=== PATIENT | male | born 1940 ===

== ENCOUNTER 2018-06-25 01:50 | Inpatient (IN) | payer OTHER ==
[~2018-06-25] VITALS: Ht 180.3 cm; Wt 108.4 kg
[~2018-06-25 01:50] MED LIST: AMLODIPINE BESYL5 M1 PO; LISINOPRIL20 M1 PO; SIMVASTATIN20 M2 PO; TRAZODONE HCL50 M1 PO
[2018-06-25 08:49] LABS: ABSOLUTE BASOPHIL COUNT 0 /CUMM (0.0-0.2); ABSOLUTE EOSINOPHIL COUNT 0.1 /CUMM (0.0-0.7); ABSOLUTE GRANULOCYTE CT 4.9 /CUMM (1.4-6.5); ABSOLUTE LYMPH COUNT 1.7 /CUMM (1.2-3.4); ABSOLUTE MONOCYTE COUNT 0.6 /CUMM (0.10-0.60); BASOPHIL % 0.6 % (0.0-2.0); EOSINOPHIL % 0.9 % (0-5); GRANULOCYTE % 66.8 % (42.2-75.2); HEMATOCRIT 33.3 % (42-52); MEAN CORPUSCULAR HGB 31.8 PG (27.0-31.0); MEAN CORPUSCULAR HGB CONC 34.2 G/DL (33.0-37.0); MEAN PLATELET VOLUME 8.5 FL (7.4-10.4); PLATELET COUNT 223 /CUMM (130-400); RBC DISTRIBUTION WIDTH 13.8 % (11.5-14.5); RED BLOOD CELL CT 3.58 /CUMM (4.70-6.10); WHITE BLOOD CELL COUNT 7.3 /CUMM (4.8-10.8)
--- NOTE | 2018-06-25 09:40 | Admission Core Measures ---
Acute Coronary Syndrome (CM) ACS Core Measures Acute Coronary Syndrome Diagnosis No Congestive Heart Failure (NEW) CHF Core Measures Congestive Heart Failure Diagnosis No Cerebrovascular Accident CVA Core Measures CVA/TIA Diagnosis No Venous Thromboembolism VTE Core Bertha (View Protocol) VTE Risk Factors Surgery No Mechanical VTE Prophylaxis d/t N/A MechProphylax Ordered No VTE Pharm Prophylaxis d/t NA PharmProphylax ordered Problem List As ranked by this Provider includes Assessment & Plan 1. Status post total hip replacement, right HOME MEDS Home Med List Amlodipine Besylate 5 MG TABLET 1 TAB PO DAILY HTN (Reported) Lisinopril 20 MG TABLET 1 TAB PO DAILY HTN (Reported) Simvastatin (Simvastatin*) 20 MG TABLET 1 TAB PO QPM CHOLESTEROL (Reported) Trazodone HCl 50 MG TABLET 2 TAB PO QPM SLEEP (Reported)
--- NOTE | 2018-06-25 09:42 | Surg Short-stay <48hrs Dis Sum ---
Visit Information Visit Dates Admission Date: 06/25/18 Discharge Date: 06/29/18 Surgical Short Stay DC Summary Admission Diagnosis: OA/DJD Final Diagnosis: same s/p R THR IRIS Procedure(s): R THR - see operative report Summary/Significant Findings: Patient underwent a R THR by Dr Clark and was brought to the PACU in stable condition. Post-op course was complicated by IRIS, creatinine went up to 2.[address] Villanueva, from nephrology was consulted, nephrotoxic medications were discontinued including, lisinopril and toradol and IVF were re-started. On the day of discharge, he was voiding, tolerating a regular diet, pain was controlled with oral analgesics and he was cleared for discharge home with services. He was instructed not to restart his lisinopril until follow-up with his pathology assistant and to increase his amlodipine to 10mg daily for BP control. Condition at Discharge: good Discharge Disposition: home health services Discharge instructions provided to patient/family: Yes Post discharge follow-up plan: Keep scheduled appointment with Dr Clark, call sooner if needed FU with nephrologust within 1 week for BP check and repeat labs if needed Copies to: Amber DURÁN,Jean Paul Clark MD,Jean Paul
--- NOTE | 2018-06-25 09:43 | Patient Discharge Instructions ---
Discharge Instructions General Discharge Information You were seen/treated for: Hip pain You had these procedures: Total hip replacement Watch for these problems: See pre printed sheet No bath, but you may shower: Yes Other wound care: Keep incision clean and dry. May shower, no bathing or soaking Diet Continue normal diet: Yes Activity Activity Self Limited: Yes Activity Limited to: Weight bear as tolerated Acute Coronary Syndrome Inclusion Criteria At DC or during hospital stay patient has or had the following: ACS DIAGNOSIS No Discharge Core Measures Meds if any: Prescribed or Continued at Discharge Meds if any: NOT Prescribed or Continued at Discharge Congestive Heart Failure Inclusion Criteria At DC or during hospital stay patient has or had the following: CHF DIAGNOSIS No Discharge Core Measures Meds if any: Prescribed or Continued at Discharge Meds if any: NOT Prescribed or Continued at Discharge Cerebrovascular accident Inclusion Criteria At DC or during hospital stay patient has or had the following: CVA/TIA Diagnosis No Discharge Core Measures Meds if any: Prescribed or Continued at Discharge Meds if any: NOT Prescribed or Continued at Discharge Venous thromboembolism Inclusion Criteria VTE Diagnosis No VTE Type NONE VTE Confirmed by (Test) NONE Discharge Core Measures - Per Current guidelines, there needs to be overlap - treatment for the first 5 days of Warfarin therapy. - If discharged on Warfarin prior to 5 days of - overlap therapy, the patient will need to be - assessed for post discharge needs including - *Post discharge parental anticoagulation - *Warfarin and/or parental anticoagulation education - *Follow up date to check INR post discharge At least 5 days overlap therapy as Inpatient No Meds if any: Prescribed or Continued at Discharge Note: Overlap Therapy is Warfarin and Anticoagulant Meds if any: NOT Prescribed or Continued at Discharge
[2018-06-25] MEDS ORDERED: MIRALAX17 G1 PO (09:45)
[2018-06-25] MEDS ORDERED: DILAUDID2 M1 PO (09:45)
[2018-06-25] MEDS ORDERED: COLACE100 M1 PO (09:45)
[2018-06-25] MEDS ORDERED: ASPIRIN EC81 M1 PO (09:45)
[2018-06-25] MEDS ORDERED: OMEPRAZOLE20 M3 PO (10:52)
[2018-06-25 12:18] VITALS: BP 138/84
--- NOTE | 2018-06-25 12:30 | RADIOLOGY REPORT ---
EXAMINATION: XR HIP, RIGHT CLINICAL INFORMATION: Status post right total hip replacement COMPARISON: None TECHNIQUE: Two views of the right hip. FINDINGS: The femoral head prosthesis is well-positioned within the acetabular cup. There is normal anteversion and lateral version of the acetabular cup. The tip of the femoral stem is well-positioned in the medullary cavity of the proximal femoral diaphysis, but is excluded from [id number] on the crosstable lateral radiograph. No evidence of periprosthetic fracture. There is postoperative soft tissue gas of the hip. IMPRESSION: The components of the right total hip arthroplasty exhibit satisfactory position and alignment. No acute periprosthetic fracture.
[2018-06-25 14:30] VITALS: BP 153/81
--- NOTE | 2018-06-25 14:39 | PN- Orthopedic ---
Subjective Subjective: POST-OP NOTE Reports pain currently "8/10", after receiving dilaudid 4mg about 1.5 hours ago. Out of bed with some "light headedness" and nausea. Currently only reporting pain. No shortness of breath. No chest pains. Voided without difficulty. Objective Vital Signs and I&Os Vital Signs Date Time Temp Pulse Resp B/P B/P Pulse O2 O2 Flow FiO2 Mean Ox Delivery Rate 06/25 1430 97.4 61 16 153/81 99 Room Air 06/25 1218 98.0 59 18 138/84 93 Room Air Intake & Output 06/25 1600 06/25 0800 06/25 0000 06/24 1600 06/24 0800 06/24 0000 Intake Total 500 Output Total 500 Balance 0 Intake, IV 200 Intake, Oral 300 Number 0 Bowel Movements Output, Urine 500 Patient 239 lb Weight Weight Bed scale Measurement Method Physical Exam: General - alert & oriented x 3. comfortable appearing. no acute distress. Lungs - clear bilaterally. no w/r/r. Cardiac - s1s2. reg. Abdomen - soft. nontender. Extremities - warm bilaterally. right hip dressing c/d/i. no hematoma. no drains. nvi. calves soft and nontender b/l. Current Medications: Current Medications Sig/Charley Start time Last Medication Dose Route Stop Time Status Admin Acetaminophen 1,000 MG Q6 06/25 1200 AC 06/25 IV 06/26 0601 1255 Acetaminophen 0 .STK-MED ONE 06/25 0833 DC PO Acetaminophen 975 MG ONCE 06/25 0000 DC PO 06/25 2359 Amlodipine Besylate 5 MG DAILY 06/26 0900 DC PO Amlodipine Besylate 5 MG DAILY 06/26 0900 AC PO Aspirin Buffered 81 MG BID 06/25 2100 AC PO Atorvastatin Calcium 10 MG 1700 06/25 1700 DC PO Atorvastatin Calcium 10 MG 1700 06/25 1700 AC PO Cefazolin Sodium 2 GM Q8H 06/25 1700 AC N/A 1 UNIT IV 06/26 0129 Cefazolin Sodium 2,000 MG ONCE 06/25 0000 DC IV 06/25 2359 Dextrose/Sodium 1,000 ML .Q10H 06/25 1230 AC 06/25 Chloride IV 1256 Docusate Sodium 100 MG BID 06/25 2100 AC PO Hydromorphone HCl 2 MG Q4P PRN 06/25 1230 AC PO Hydromorphone HCl 4 MG Q4P PRN 06/25 1230 AC 06/25 PO 1258 Hydromorphone HCl 0 .STK-MED ONE 06/25 1108 DC .ROUTE Lisinopril 20 MG DAILY 06/26 0900 DC PO Lisinopril 20 MG DAILY 06/26 0900 AC PO Midazolam HCl 0 .STK-MED ONE 06/25 0741 DC .ROUTE Morphine Sulfate 2 MG Q2P PRN 06/25 1230 AC 06/25 IV 1449 Ondansetron HCl 4 MG Q6P PRN 06/25 1230 AC IV Oxycodone HCl 0 .STK-MED ONE 06/25 0833 DC PO Oxycodone HCl 10 MG ONCE 06/25 0000 DC PO 06/25 2359 Polyethylene Glycol 17 GM DAILY 06/25 0936 AC PO Tranexamic Acid 0 .STK-MED ONE 06/25 0742 DC IV Trazodone HCl 100 MG QPM 06/25 2100 CAN PO Trazodone HCl 50 MG AT BEDTIME NEED.. 06/25 1230 AC PO Results Last 48 Hours of Labs: Laboratory Tests 06/25 830 Hematology CBC w Diff NO MAN DIFF REQ WBC (4.8 - 10.8 /CUMM) 7.3 RBC (4.70 - 6.10 /CUMM) 3.58 L Hgb (14.0 - 18.0 G/DL) 11.4 L Hct (42 - 52 %) 33.3 L MCV (80.0 - 94.0 FL) 93.0 MCH (27.0 - 31.0 PG) 31.8 H MCHC (33.0 - 37.0 G/DL) 34.2 RDW (11.5 - 14.5 %) 13.8 Plt Count (130 - 400 /CUMM) 223 MPV (7.4 - 10.4 FL) 8.5 Gran % (42.2 - 75.2 %) 66.8 Lymphocytes % (20.5 - 51.1 %) 23.2 Monocytes % (1.7 - 9.3 %) 8.5 Eosinophils % (0 - 5 %) 0.9 Basophils % (0.0 - 2.0 %) 0.6 Absolute Granulocytes (1.4 - 6.5 /CUMM) 4.9 Absolute Lymphocytes (1.2 - 3.4 /CUMM) 1.7 Absolute Monocytes (0.10 - 0.60 /CUMM) 0.6 Absolute Eosinophils (0.0 - 0.7 /CUMM) 0.1 Absolute Basophils (0.0 - 0.2 /CUMM) 0 Assessment/Plan Assessment/Plan This 77 year male with hx htn, hld, insomnia, is POD#0 s/p right total hip replacement for unilateral primary osteoarthritis tolerating diet, although nauseous earlier pain currently not well controlled. nurse to administer iv morphine continue PT tomorrow huey-operative ancef x 2 doses asa 81mg bid - dvt ppx home meds ordered, including bp meds f/u AM labs possible d/c home tomorrow will d/w Core Measures Venous Thromboembolism VTE Risk Factors Surgery No Mechanical VTE Prophylaxis d/t N/A MechProphylax Ordered No VTE Pharm Prophylaxis d/t NA PharmProphylax ordered
--- NOTE | 2018-06-25 15:51 | Operative Report ---
Operative/Inv Procedure Report Surgery Date: 06/25/18 Name of Procedure: Right total hip replacement Pre-Operative Diagnosis: Primary right hip DJD Post-Operative Diagnosis: Same Estimated Blood Loss: 250 Surgeon/Concrete Hopper Operator: Amber DURÁN,Jean Paul Austin Anesthesia: block Operative/Procedure Note Note: Description of Procedure: The patient was taken to the operating room and positively identified. After induction of spinal anesthesia and administration of appropriate pre-operative antibiotics, the patient was positioned supine on the operating room table and all bony prominences were well padded. After performing a surgical timeout, the right lower extremity was prepped and draped in the usual sterile fashion. A direct anterior approach was made to the right hip. The incision was carried sharply through superficial soft tissues to the level of the fascia. Meticulous hemostasis was maintained with Bovie electocautery. The fascia over the tensor fascia kishan muscle was opened sharply and the interval between the TFL and the sartorius was entered bluntly taking care to stay lateral to the lateral femoral cutaneous nerve. Retractors were placed around the femoral neck and the pericapsular fat was identified. The ascending branches of the lateral femoral circumflex vessels were identified and carefully coagulated. The pericapsular fat and anterior capsule were then resected. A napkin ring osteotomy was performed and the femoral head was removed without difficulty. Attention was then turned to the acetabulum. After appropriate placement of retractors, the acetabulum was exposed. Soft tissue was cleaned from the acetabular margin and notch. Overhanging osteophytes were removed and the teardrop was exposed. The acetabulum was then sequentially reamed to accept a 66 mm Robby Tritanium hemispherical solid shell. This was impacted into place in the appropriate position and fitted with a 36 mm Trident X3 zero degree polyethylene insert. Attention was then turned to the femur. After performing the appropriate ligament releases, the proximal femur was exposed. It was then sequentially broached to accept a size 9 Robby secure fit advanced 127 neck angle stem. This was trialed for leg length and stability. The trial component was removed and the final component was impacted into place. The trunnion was carefully cleaned and fit with a 36 mm, +5 Biolox delta ceramic femoral head. The hip was reduced and put through a full range of motion and found to be stable. The articular space was then irrigated with sterile saline. The periarticular soft tissues were infilitrated with Marcaine. The fascial layer was closed with interrupted #1 vicryl suture and the skin was re-approximated with interrupted 2 -0 vicryl. The skin was closed with a running 3-0 V-Lock suture. Steri-strips and a sterile dressing were applied. The patient was awakened and taken to the recovery room in satisfactory condition.
[2018-06-25 16:43] VITALS: BP 132/77
[2018-06-25 18:00] VITALS: BP 141/77
[2018-06-25 20:00] VITALS: BP 142/76
[2018-06-26 01:38] VITALS: BP 120/60
[2018-06-26 04:23] VITALS: BP 110/70
[2018-06-26 06:24] VITALS: BP 140/70
[2018-06-26 08:34] VITALS: BP 152/75
--- NOTE | 2018-06-26 09:17 | PN- Orthopedic ---
Subjective Subjective: POD#1 S/P RIGHT ZORA SITTING UP IN CHAIR EATING BREAKFAST NO MAJOR ISSUES OVERNIGHT DENEIS CP, SOB, NO N+V WITH DIET Objective Vital Signs and I&Os Vital Signs Date Time Temp Pulse Resp B/P B/P Pulse O2 O2 Flow FiO2 Mean Ox Delivery Rate 06/26 0834 98.4 86 18 152/75 96 Room Air 06/26 0825 91 140/70 / 0824 91 140/70 06/26 0624 99.6 91 18 140/70 95 / 0423 98.4 74 18 110/70 95 06/26 0138 99.6 79 18 120/60 94 06/25 2000 99.3 77 18 142/76 95 Room Air 06/25 1800 98.1 69 19 141/77 96 Room Air 06/25 1643 98.2 64 19 132/77 99 Room Air 06/25 1430 97.4 61 16 153/81 99 Room Air 06/25 1218 98.0 59 18 138/84 93 Room Air Intake & Output 06/26 1600 06/26 0800 06/26 0000 06/25 1600 06/25 0800 06/25 0000 Intake Total 1530 1060 500 Output Total 700 500 Balance 1530 360 0 Intake, IV 1050 300 200 Intake, Oral 480 760 300 Number 0 0 0 Bowel Movements Output, Urine 700 500 Patient 239 lb Weight Weight Bed scale Measurement Method Physical Exam: CV: RRR LUNGS: CLEAR ABD: SOFT, +BS EXT: DRSG DRY DISTAL CMS INTACT NO CALF TENDERNESS Assessment/Plan Assessment/Plan ORTHO STABLE PLAN HOME D/C LATER TODAY AFTER PT CLEARANCE Core Measures Venous Thromboembolism VTE Risk Factors Surgery No Mechanical VTE Prophylaxis d/t N/A MechProphylax Ordered No VTE Pharm Prophylaxis d/t NA PharmProphylax ordered
[2018-06-26 10:51] LABS: ABSOLUTE BASOPHIL COUNT 0 /CUMM (0.0-0.2); ABSOLUTE EOSINOPHIL COUNT 0 /CUMM (0.0-0.7); ABSOLUTE GRANULOCYTE CT 9.6 /CUMM (1.4-6.5); ABSOLUTE LYMPH COUNT 1.8 /CUMM (1.2-3.4); ABSOLUTE MONOCYTE COUNT 1.2 /CUMM (0.10-0.60); BASOPHIL % 0.3 % (0.0-2.0); EOSINOPHIL % 0.3 % (0-5); GRANULOCYTE % 76.2 % (42.2-75.2); MEAN CORPUSCULAR HGB 31.7 PG (27.0-31.0); MEAN CORPUSCULAR HGB CONC 34.1 G/DL (33.0-37.0); MEAN PLATELET VOLUME 9.2 FL (7.4-10.4); PLATELET COUNT 243 /CUMM (130-400); RBC DISTRIBUTION WIDTH 14.6 % (11.5-14.5); RED BLOOD CELL CT 3.77 /CUMM (4.70-6.10)
[2018-06-26 11:04] LABS: WHITE BLOOD CELL COUNT 12.7 /CUMM (4.8-10.8)
[2018-06-26 12:35] VITALS: BP 116/65
[2018-06-26 21:14] VITALS: BP 118/64
[2018-06-27 07:12] VITALS: BP 122/70; BP 130/60
--- NOTE | 2018-06-27 08:51 | PN- Orthopedic ---
See Addendum Subjective Subjective: Patient sitting in bed still complains of severe right hip pain. Declined physical therapy this morning due to pain. Tolerating regular diet, no bowel movement yet. Voiding. Denies chest pain, shortness of breath, headache, fevers Objective Vital Signs and I&Os Vital Signs Date Time Temp Pulse Resp B/P B/P Pulse O2 O2 Flow FiO2 Mean Ox Delivery Rate 06/27 08 99 130/84 06/27 08 99 130/84 06/27 0712 98.9 94 17 130/60 87 06/26 2114 99.3 93 17 118/64 96 Room Air 06/26 1235 97.7 85 18 116/65 96 Room Air Intake & Output 06/27 1600 06/27 0800 06/27 0000 06/26 1600 06/26 0800 06/26 0000 Intake Total 410 829 9731 1060 Output Total 250 350 700 Balance 078 640 0588 360 Intake, IV 200 1050 300 Intake, Oral 480 550 480 760 Number 0 0 Bowel Movements Output, Urine 250 350 700 Physical Exam: General- NAD Resperations- clear bialaterlly Cardiac-regular rate and rhythm Abdomen-soft nontender with positive bowel sounds Extremities-dressing is clean and dry, thigh is soft with no erythema, minimal tenderness around incision. DRESSING CHANGED. Calves are soft bilaterally and non-tenderness. Distal sensory and motor function is intact. 2+ dorsalis pedis pulse bilaterally Current Medications: Current Medications Sig/Charley Start time Last Medication Dose Route Stop Time Status Admin Acetaminophen 975 MG Q8H 06/27 0845 AC PO Amlodipine Besylate 5 MG DAILY 06/26 09 DC PO Amlodipine Besylate 5 MG DAILY 06/26 0900 AC 06/27 PO 0812 Aspirin Buffered 81 MG BID 06/25 2100 AC 06/27 PO 0811 Atorvastatin Calcium 10 MG 1700 06/25 1700 AC 06/26 PO 1620 Dextrose/Sodium 1,000 ML Q8H 06/27 0900 AC Chloride IV Dextrose/Sodium 1,000 ML .Q10H 06/25 1230 DC 06/26 Chloride IV 0829 Docusate Sodium 100 MG BID 06/25 2100 AC 06/27 PO 0811 Hydromorphone HCl 2 MG Q4P PRN 06/25 1230 AC PO Hydromorphone HCl 4 MG Q4P PRN 06/25 1230 AC 06/27 PO 0811 Ketorolac 15 MG Q8P PRN 06/27 0845 CAN Tromethamine IV 07/02 0844 Ketorolac 30 MG ONCE ONE 06/27 0845 DC Tromethamine IV 06/27 0846 Lisinopril 20 MG DAILY 06/26 0900 DC PO Lisinopril 20 MG DAILY 06/26 0900 AC 06/27 PO 0812 Morphine Sulfate 2 MG Q2P PRN 06/25 1230 AC 06/26 IV 1824 Ondansetron HCl 4 MG Q6P PRN 06/25 1230 AC 06/26 IV 0933 Patient Medication 1 ED ONE ONE 06/26 181 DC 06/26 Teaching ED 06/26 181 1826 Polyethylene Glycol 17 GM DAILY 06/25 0936 AC 06/27 PO 0810 Senna/Docusate Sodium 2 TAB DAILY 06/27 0900 AC PO Trazodone HCl 50 MG AT BEDTIME NEED.. 06/25 1230 AC 06/25 PO 2222 Results Last 48 Hours of Labs: Laboratory Tests 06/26 916 Chemistry Sodium (137 - 145 mmol/L) 138 Potassium (3.5 - 5.1 mmol/L) 3.8 Chloride (98 - 107 mmol/L) 101 Carbon Dioxide (22 - 30 mmol/L) 26 Anion Gap (5 - 16) 10 BUN (9 - 20 mg/dL) 17 Creatinine (0.7 - 1.2 mg/dL) 1.3 H Estimated GFR (>60 ml/min) 53 L BUN/Creatinine Ratio (7 - 25 %) 13.1 Hematology CBC w Diff NO MAN DIFF REQ WBC (4.8 - 10.8 /CUMM) 12.7 H RBC (4.70 - 6.10 /CUMM) 3.77 L Hgb (14.0 - 18.0 G/DL) 11.9 L Hct (42 - 52 %) 35.0 L MCV (80.0 - 94.0 FL) 93.0 MCH (27.0 - 31.0 PG) 31.7 H MCHC (33.0 - 37.0 G/DL) 34.1 RDW (11.5 - 14.5 %) 14.6 H Plt Count (130 - 400 /CUMM) 243 MPV (7.4 - 10.4 FL) 9.2 Gran % (42.2 - 75.2 %) 76.2 H Lymphocytes % (20.5 - 51.1 %) 13.9 L Monocytes % (1.7 - 9.3 %) 9.3 Eosinophils % (0 - 5 %) 0.3 Basophils % (0.0 - 2.0 %) 0.3 Absolute Granulocytes (1.4 - 6.5 /CUMM) 9.6 H Absolute Lymphocytes (1.2 - 3.4 /CUMM) 1.8 Absolute Monocytes (0.10 - 0.60 /CUMM) 1.2 H Absolute Eosinophils (0.0 - 0.7 /CUMM) 0 Absolute Basophils (0.0 - 0.2 /CUMM) 0 Assessment/Plan Assessment/Plan 77-year-old male status post right total hip arthroplasty postop day 2. Stable condition although still with significant pain. Ordering repeat labs for this morning to follow-up on leukocytosis likely reactive from surgery and elevated creatinine from yesterday. pain management we will add one-time dose of Toradol and p.o. extra strength Tylenol PT- WBAT with rolling walker DVT PPX- ASA BID FU AM labs We will restart IV fluids for now until creatinine comes back this morning Regular diet Regular home medications Encourage IS DC planning- plan for home with health services today pending clearance by physical therapy Core Measures Venous Thromboembolism VTE Risk Factors Surgery No Mechanical VTE Prophylaxis d/t N/A MechProphylax Ordered No VTE Pharm Prophylaxis d/t NA PharmProphylax ordered
[2018-06-27 10:12] LABS: ABSOLUTE BASOPHIL COUNT 0.1 /CUMM (0.0-0.2); ABSOLUTE EOSINOPHIL COUNT 0 /CUMM (0.0-0.7); ABSOLUTE GRANULOCYTE CT 14.1 /CUMM (1.4-6.5); ABSOLUTE LYMPH COUNT 1.5 /CUMM (1.2-3.4); ABSOLUTE MONOCYTE COUNT 1.9 /CUMM (0.10-0.60); BASOPHIL % 0.4 % (0.0-2.0); EOSINOPHIL % 0 % (0-5); GRANULOCYTE % 80.6 % (42.2-75.2); HEMATOCRIT 33.3 % (42-52); MEAN CORPUSCULAR HGB 31.8 PG (27.0-31.0); MEAN CORPUSCULAR HGB CONC 34.5 G/DL (33.0-37.0); MEAN CORPUSCULAR VOLUME 92.1 FL (80.0-94.0); MEAN PLATELET VOLUME 9.3 FL (7.4-10.4); PLATELET COUNT 240 /CUMM (130-400); RBC DISTRIBUTION WIDTH 14.3 % (11.5-14.5); RED BLOOD CELL CT 3.62 /CUMM (4.70-6.10); WHITE BLOOD CELL COUNT 17.5 /CUMM (4.8-10.8)
[2018-06-27 14:15] VITALS: BP 111/60
[2018-06-27 23:00] VITALS: BP 149/78
--- NOTE | 2018-06-28 07:19 | PN- Orthopedic ---
Subjective Subjective: No acute events overnight, patient feeling well, no fever no flulike illness, right hip pain is controlled Objective Vital Signs and I&Os Vital Signs Date Time Temp Pulse Resp B/P B/P Pulse O2 O2 Flow FiO2 Mean Ox Delivery Rate 06/27 2300 97.5 74 19 149/78 96 Room Air 06/27 1415 98.7 61 16 111/60 98 Room Air 06/27 0812 99 130/84 06/27 0812 99 130/84 Intake & Output 06/28 0000 06/27 1600 06/27 0806/27 0000 06/26 1600 Intake Total 600 1200 120 480 750 Output Total 400 250 400 250 350 Balance 200 -250 800 120 230 400 Intake, IV 600 500 200 Intake, Oral 700 120 480 550 Number 0 Bowel Movements Output, Urine 400 250 400 250 350 Physical Exam: Well-developed well-nourished no apparent distress. HEENT: Atraumatic, extraocular motion intact Neck: Supple, no lymphadenopathy Respiratory: No respiratory distress Extremities: No edema RIGHT lower extremity hip dressing in place, Dressing clean dry and intact Mild thigh swelling No signs of infection. No shortening or rotation Hip range of motion is limited and without unexpected pain Neurovascularly intact distally Bilateral calves are supple, nontender. Neuro: Alert and oriented x3 Psych: Mood affect normal, normal memory normal judgment. Skin: Warm and dry, no rash on exposed skin Results Last 48 Hours of Labs: Laboratory Tests 06/27 06/27 2245 2245 Urines Urine Color (YEL,AMB,STR) YEL Urine Clarity (CLEAR) CLDY H Urine pH (5.0 - 8.0) 5.5 Ur Specific [place] (1.001 - 1.035) >= 1.030 Urine Protein (NEG,<30 MG/DL) 30 H Urine Ketones (NEG) NEG Urine Nitrite (NEG) NEG Urine Bilirubin (NEG) NEG Urine Urobilinogen (0.1 - 1.0 EU/dl) 0.2 Ur Leukocyte Esterase (NEG) TRACE H Ur Microscopic SEDIMENT EXAMINED Urine RBC (0 - 5 /HPF) >75 H Urine WBC (0 - 2 /HPF) 10-15 H Ur Epithelial Cells (NONE,FEW) FEW Urine Crystals 1+ CA OX H Urine Bacteria (NEG/NONE) MOD H Urine Mucus (FEW,NONE) FEW Urine Hemoglobin (NEG) LARGE H Ur Random Creatinine (mg/dL) 352.4 U Random Total Protein (0 - 12 mg/dL) 40 H Ur Random Sodium (30 - 90 mmol/L) 15 L Ur Random Potassium (mmol/L) 51.8 Protein/Creatinin Ratio (< 0.2) 0.1 Fraction Sodium Excret (<1% %) 0.1 Urine Glucose (N MG/DL) NEG 06/27 06/27 1220 1220 Urines Urine Color (YEL,AMB,STR) YEL Urine Clarity (CLEAR) HAZY H Urine pH (5.0 - 8.0) 5.5 Ur Specific [place] (1.001 - 1.035) 1.025 Urine Protein (NEG,<30 MG/DL) 100 H Urine Ketones (NEG) NEG Urine Nitrite (NEG) NEG Urine Bilirubin (NEG) NEG Urine Urobilinogen (0.1 - 1.0 EU/dl) 0.2 Ur Leukocyte Esterase (NEG) NEG Ur Microscopic SEDIMENT EXAMINED Urine RBC (0 - 5 /HPF) PACKD H Urine WBC (0 - 2 /HPF) RARE Ur Epithelial Cells (NONE,FEW) FEW Granular Casts (NONE /LPF) 1-3 H Urine Hemoglobin (NEG) LARGE H Ur Random Creatinine (mg/dL) 170.5 Ur Random Sodium (30 - 90 mmol/L) 26 L Ur Random Potassium (mmol/L) 44.8 Fraction Sodium Excret (<1% %) 0.3 Urine Glucose (N MG/DL) NEG 06/27 06/26 0945 0916 Chemistry Sodium (137 - 145 mmol/L) 136 L 138 Potassium (3.5 - 5.1 mmol/L) 4.3 3.8 Chloride (98 - 107 mmol/L) 103 101 Carbon Dioxide (22 - 30 mmol/L) 20 L 26 Anion Gap (5 - 16) 13 10 BUN (9 - 20 mg/dL) 25 H 17 Creatinine (0.7 - 1.2 mg/dL) 2.7 H 1.3 H Estimated GFR (>60 ml/min) 23 L 53 L BUN/Creatinine Ratio (7 - 25 %) 9.3 13.1 Hematology CBC w Diff NO MAN DIFF REQ NO MAN DIFF REQ WBC (4.8 - 10.8 /CUMM) 17.5 H 12.7 H RBC (4.70 - 6.10 /CUMM) 3.62 L 3.77 L Hgb (14.0 - 18.0 G/DL) 11.5 L 11.9 L Hct (42 - 52 %) 33.3 L 35.0 L MCV (80.0 - 94.0 FL) 92.1 93.0 MCH (27.0 - 31.0 PG) 31.8 H 31.7 H MCHC (33.0 - 37.0 G/DL) 34.5 34.1 RDW (11.5 - 14.5 %) 14.3 14.6 H Plt Count (130 - 400 /CUMM) 240 243 MPV (7.4 - 10.4 FL) 9.3 9.2 Gran % (42.2 - 75.2 %) 80.6 H 76.2 H Lymphocytes % (20.5 - 51.1 %) 8.3 L 13.9 L Monocytes % (1.7 - 9.3 %) 10.7 H 9.3 Eosinophils % (0 - 5 %) 0 0.3 Basophils % (0.0 - 2.0 %) 0.4 0.3 Absolute Granulocytes (1.4 - 6.5 /CUMM) 14.1 H 9.6 H Absolute Lymphocytes (1.2 - 3.4 /CUMM) 1.5 1.8 Absolute Monocytes (0.10 - 0.60 /CUMM) 1.9 H 1.2 H Absolute Eosinophils (0.0 - 0.7 /CUMM) 0 0 Absolute Basophils (0.0 - 0.2 /CUMM) 0.1 0 Assessment/Plan Assessment/Plan Postop day #3 status post right total hip arthroplasty anterior approach Creatinine elevated yesterday, questionable ATN, nephrology consult pending, IV fluids running, follow a.m. labs Continue to hold nephrotoxic medication Leukocytosis, likely reactive postoperatively, no signs of infection, recheck this a.m. Out of bed, physical therapy, weightbearing as tolerated Continue dry sterile dressing Aspirin for DVT prophylaxis Pain medication as needed Possible discharge home today w VNA services as patient is orthopedically stable however we will await nephrology consult prior to making any decisions in case he needs further nephrology workup and/or treatment Core Measures Venous Thromboembolism VTE Risk Factors Surgery No Mechanical VTE Prophylaxis d/t N/A MechProphylax Ordered No VTE Pharm Prophylaxis d/t NA PharmProphylax ordered
[2018-06-28 07:23] VITALS: BP 150/70
[2018-06-28 08:24] LABS: ABSOLUTE BASOPHIL COUNT 0 /CUMM (0.0-0.2); ABSOLUTE EOSINOPHIL COUNT 0.1 /CUMM (0.0-0.7); ABSOLUTE LYMPH COUNT 1.6 /CUMM (1.2-3.4); ABSOLUTE MONOCYTE COUNT 1.2 /CUMM (0.10-0.60); BASOPHIL % 0.2 % (0.0-2.0); EOSINOPHIL % 0.9 % (0-5); GRANULOCYTE % 77.6 % (42.2-75.2); HEMATOCRIT 29.7 % (42-52); MEAN CORPUSCULAR HGB 31.6 PG (27.0-31.0); MEAN CORPUSCULAR HGB CONC 33.9 G/DL (33.0-37.0); MEAN CORPUSCULAR VOLUME 93.2 FL (80.0-94.0); MEAN PLATELET VOLUME 8.5 FL (7.4-10.4); PLATELET COUNT 209 /CUMM (130-400); RED BLOOD CELL CT 3.19 /CUMM (4.70-6.10); WHITE BLOOD CELL COUNT 12.9 /CUMM (4.8-10.8)
--- NOTE | 2018-06-28 09:50 | Cons- Nephrology ---
General Information and HPI Consulting Request Date of Consult: 06/28/18 Requested By: Jean Paul Clark MD Reason for Consult: Acute kidney injury possible chronic kidney disease Source of Information: patient, old records Exam Limitations: no limitations History of Present Illness: This 77-year-old gentleman has a previous history of having been evaluated for kidney issues. Serum creatinine upon presentation was 1.3. Reviewing outside records, he likewise had a creatinine 1.3. He denies any dysuria, frequency, polyuria or nocturia. Because of concerns of which the patient is not completely sure, he was sent to see Dr. Teresa Dale of [facility]. Initially the patient said it was a urologist. But on closer questioning, it was clear that the physician was Dr. Posada. Patient himself denies any history of hematuria or proteinuria. He denies any history of kidney stones or kidney infections. No one in the family has history of renal disease. No one in the family has a history of needing dialysis. He is not aware of any proteinuria. Patient underwent a right total hip replacement on June 25, 2018. Reviewing the preop materials, his serum creatinine as an outpatient was likewise 1.3. Creatinine was the same the day after surgery on the . Yesterday however, it was found to be 2.7. It is still 2.7 today. He denies any difficulty with voiding. He denies any slowed stream. Also of note, he does not use nonsteroidal anti-inflammatory drugs at home. It appears he did receive a dose of Toradol. He tells me he did not take his lisinopril before the operation. Looking at the blood pressures in the operative report, as well as the anesthesia record, there is no episodes of hypotension. He has not received any IV contrast. There is been no madonna episodes of hypotension. He did receive what appears to be 1 dose of Toradol. His lisinopril was resumed after the surgery. With regards to his high blood pressure, he has had that for 5 years. It is been easily controlled. He has never been hospitalized with high blood pressure. Allergies/Medications Allergies: Coded Allergies: No Known Allergies (06/12/18) Home Med List: Amlodipine Besylate 5 MG TABLET 1 TAB PO DAILY HTN (Reported) Aspirin (Ecotrin*) 81 MG TABLET.DR 1 TAB PO BID blood thinner Docusate Sodium (Colace) 100 MG CAPSULE 1 CAP PO BID constipation Hydromorphone HCl (Dilaudid) 2 MG TABLET 1-2 TAB PO Q4P PRN pain Lisinopril 20 MG TABLET 1 TAB PO DAILY HTN (Reported) Omeprazole 20 MG TABLET.DR 1 TAB PO DAILY ulcer prophylaxis Polyethylene Glycol 3350 (Miralax) 17 GRAM POWD.PACK 1 PAC PO DAILY constipation dissolve in water Simvastatin (Simvastatin*) 20 MG TABLET 1 TAB PO QPM CHOLESTEROL (Reported) Trazodone HCl 50 MG TABLET 2 TAB PO QPM PRN sleep (Reported) Current Medications: Current Medications Sig/Charley Start time Last Medication Dose Route Stop Time Status Admin Acetaminophen 975 MG Q8H 06/27 0845 AC 06/28 PO 0841 Amlodipine Besylate 5 MG DAILY 06/26 0900 AC 06/28 PO 0841 Aspirin Buffered 81 MG BID 06/25 2100 AC 06/28 PO 0841 Atorvastatin Calcium 10 MG 1700 06/25 1700 DC 06/26 PO 1620 Dextrose/Sodium 1,000 ML Q8H 06/27 0900 DC 06/27 Chloride IV 0858 Docusate Sodium 100 MG BID 06/25 2100 AC 06/28 PO 0841 Hydromorphone HCl 2 MG Q4P PRN 06/25 1230 AC PO Hydromorphone HCl 4 MG Q4P PRN 06/25 1230 AC 06/27 PO 1235 Lisinopril 20 MG DAILY 06/26 0900 DC 06/27 PO 0812 Morphine Sulfate 2 MG Q2P PRN 06/25 1230 AC 06/26 IV 1824 Ondansetron HCl 4 MG Q6P PRN 06/25 1230 06/26 IV 0933 Patient Medication 1 ED ONE ONE 06/27 1115 MT Teaching ED 06/27 1116 Polyethylene Glycol 17 GM DAILY 06/25 0936 AC 06/28 PO 0843 Senna/Docusate Sodium 2 TAB DAILY 06/27 0900 AC 06/28 PO 0841 Sodium Chloride 1,000 ML Q13H 06/27 1045 AC 06/27 IV 2255 Trazodone HCl 50 MG AT BEDTIME NEED.. 06/25 1230 DC 06/25 PO 2222 Review of Systems Review of Systems Constitutional: Denies: chills, diaphoresis, fever, malaise, weakness, unexplained weight loss. EENTM: Denies: blurred vision, double vision, hearing changes, nasal congestion, epistaxis, throat pain, throat swelling, mouth pain. Cardiovascular: Denies: chest pain, edema, orthopena, palpitations, peripheral edema, syncope. Respiratory: Denies: cough, orthopnea, short of breath, wheezing. GI: Denies: abdominal pain, constipation, diarrhea, bowel incontinence, melena, nausea, bloody stool, changes in stool, vomiting. Genitourinary: Denies: dysuria, frequency, hematuria, hesitation, nocturia, pain, urgency. Musculoskeletal: Denies: joint pain, muscle pain, muscle stiffness. Skin: Denies: jaundice, rash. Neurological/Psychological: Denies: confusion, tingling, tremors. Hematologic/Endocrine: Denies: bruising, bleeding. Past History Medical History Blood Transfusion Hx: No Neurological: NONE EENT: NONE Cardiovascular: hypertension Respiratory: obstructive sleep apnea Gastrointestinal: NONE Hepatic: NONE Renal: chronic kidney disease (Recently saw Dr Teresa Dale) Musculoskeletal: osteoarthritis Psychiatric: anxiety Endocrine: NONE [employer]ING [employer]/Reproductive: NONE Surgical History Surgical History: hip replacement, knee replacement (x2) Psychosocial History Where Do You Live? Home Services at Home: None Smoking Status: Never Smoked Exam & Diagnostic Data Vital Signs and I&O Vital Signs Date Time Temp Pulse Resp B/P B/P Pulse O2 O2 Flow FiO2 Mean Ox Delivery Rate 06/28 0841 78 124/68 06/28 0723 99.1 88 19 150/70 92 06/27 2300 97.5 74 19 149/78 96 Room Air 06/27 1415 98.7 61 16 111/60 98 Room Air Intake & Output 06/28 1600 06/28 0400 06/27 1600 06/27 0400 06/26 1600 06/26 0400 Intake Total 600 8736 481 1531 1060 Output Total 400 250 400 250 350 700 Balance 200 -250 897 857 3575 360 Intake, IV 519 209 5857 300 Intake, Oral 581 107 3130 760 Number 0 0 0 Bowel Movements Output, Urine 400 250 400 250 350 700 Physical Exam General Appearance: well developed/nourished, no apparent distress, alert, awake , comfortable, obese Head: atraumatic, normal appearance Eyes: Bilateral: normal appearance, PERRL, EOMI. Ears, Nose, Throat: normal pharynx, normal ENT inspection, hearing grossly normal Neck: normal inspection, supple Respiratory: normal breath sounds, chest non-tender, no respiratory distress, lungs clear Cardiovascular: regular rate/rhythm Gastrointestinal: normal bowel sounds, soft, non-tender, no organomegaly, sitting up in a chair Back: normal inspection, no vertebral tenderness Extremities: normal inspection, normal capillary refill Neurologic/Psych: no motor/sensory deficits, awake, alert, oriented x 3, normal mood/affect Cranial Nerves: normal hearing, normal speech, PERRL Skin: intact, normal color, warm/dry Lymphatic: adenopathy Results Pertinent Lab Results: Laboratory Tests 06/28 06/27 0740 2245 Chemistry Sodium (137 - 145 mmol/L) 133 L Potassium (3.5 - 5.1 mmol/L) 3.9 Chloride (98 - 107 mmol/L) 102 Carbon Dioxide (22 - 30 mmol/L) 22 Anion Gap (5 - 16) 9 BUN (9 - 20 mg/dL) 39 H Creatinine (0.7 - 1.2 mg/dL) 2.7 H Estimated GFR (>60 ml/min) 23 L BUN/Creatinine Ratio (7 - 25 %) 14.4 Hematology CBC w Diff NO MAN DIFF REQ WBC (4.8 - 10.8 /CUMM) 12.9 H RBC (4.70 - 6.10 /CUMM) 3.19 L Hgb (14.0 - 18.0 G/DL) 10.1 L Hct (42 - 52 %) 29.7 L MCV (80.0 - 94.0 FL) 93.2 MCH (27.0 - 31.0 PG) 31.6 H MCHC (33.0 - 37.0 G/DL) 33.9 RDW (11.5 - 14.5 %) 14.0 Plt Count (130 - 400 /CUMM) 209 MPV (7.4 - 10.4 FL) 8.5 Gran % (42.2 - 75.2 %) 77.6 H Lymphocytes % (20.5 - 51.1 %) 12.4 L Monocytes % (1.7 - 9.3 %) 8.9 Eosinophils % (0 - 5 %) 0.9 Basophils % (0.0 - 2.0 %) 0.2 Absolute Granulocytes (1.4 - 6.5 /CUMM) 10.0 H Absolute Lymphocytes (1.2 - 3.4 /CUMM) 1.6 Absolute Monocytes (0.10 - 0.60 /CUMM) 1.2 H Absolute Eosinophils (0.0 - 0.7 /CUMM) 0.1 Absolute Basophils (0.0 - 0.2 /CUMM) 0 Urines Urine Color (YEL,AMB,STR) YEL Urine Clarity (CLEAR) CLDY H Urine pH (5.0 - 8.0) 5.5 Ur Specific Victor (1.001 - 1.035) >= 1.030 Urine Protein (NEG,<30 MG/DL) 30 H Urine Ketones (NEG) NEG Urine Nitrite (NEG) NEG Urine Bilirubin (NEG) NEG Urine Urobilinogen (0.1 - 1.0 EU/dl) 0.2 Ur Leukocyte Esterase (NEG) TRACE H Ur Microscopic SEDIMENT EXAMINED Urine RBC (0 - 5 /HPF) >75 H Urine WBC (0 - 2 /HPF) 10-15 H Ur Epithelial Cells (NONE,FEW) FEW Urine Crystals 1+ CA OX H Urine Bacteria (NEG/NONE) MOD H Urine Mucus (FEW,NONE) FEW Urine Hemoglobin (NEG) LARGE H Urine Glucose (N MG/DL) NEG 06/27 06/27 06/27 2245 1220 1220 Urines Urine Color (YEL,AMB,STR) YEL Urine Clarity (CLEAR) HAZY H Urine pH (5.0 - 8.0) 5.5 Ur Specific Victor (1.001 - 1.035) 1.025 Urine Protein (NEG,<30 MG/DL) 100 H Urine Ketones (NEG) NEG Urine Nitrite (NEG) NEG Urine Bilirubin (NEG) NEG Urine Urobilinogen (0.1 - 1.0 EU/dl) 0.2 Ur Leukocyte Esterase (NEG) NEG Ur Microscopic SEDIMENT EXAMINED Urine RBC (0 - 5 /HPF) PACKD H Urine WBC (0 - 2 /HPF) RARE Ur Epithelial Cells (NONE,FEW) FEW Granular Casts (NONE /LPF) 1-3 H Urine Hemoglobin (NEG) LARGE H Ur Random Creatinine (mg/dL) 352.4 170.5 U Random Total Protein (0 - 12 mg/dL) 40 H Ur Random Sodium (30 - 90 mmol/L) 15 L 26 L Ur Random Potassium (mmol/L) 51.8 44.8 Protein/Creatinin Ratio (< 0.2) 0.1 Fraction Sodium Excret (<1% %) 0.1 0.3 Urine Glucose (N MG/DL) NEG 06/27 06/26 0945 0916 Chemistry Sodium (137 - 145 mmol/L) 136 L 138 Potassium (3.5 - 5.1 mmol/L) 4.3 3.8 Chloride (98 - 107 mmol/L) 103 101 Carbon Dioxide (22 - 30 mmol/L) 20 L 26 Anion Gap (5 - 16) 13 10 BUN (9 - 20 mg/dL) 25 H 17 Creatinine (0.7 - 1.2 mg/dL) 2.7 H 1.3 H Estimated GFR (>60 ml/min) 23 L 53 L BUN/Creatinine Ratio (7 - 25 %) 9.3 13.1 Hematology CBC w Diff NO MAN DIFF REQ NO MAN DIFF REQ WBC (4.8 - 10.8 /CUMM) 17.5 H 12.7 H RBC (4.70 - 6.10 /CUMM) 3.62 L 3.77 L Hgb (14.0 - 18.0 G/DL) 11.5 L 11.9 L Hct (42 - 52 %) 33.3 L 35.0 L MCV (80.0 - 94.0 FL) 92.1 93.0 MCH (27.0 - 31.0 PG) 31.8 H 31.7 H MCHC (33.0 - 37.0 G/DL) 34.5 34.1 RDW (11.5 - 14.5 %) 14.3 14.6 H Plt Count (130 - 400 /CUMM) 240 243 MPV (7.4 - 10.4 FL) 9.3 9.2 Gran % (42.2 - 75.2 %) 80.6 H 76.2 H Lymphocytes % (20.5 - 51.1 %) 8.3 L 13.9 L Monocytes % (1.7 - 9.3 %) 10.7 H 9.3 Eosinophils % (0 - 5 %) 0 0.3 Basophils % (0.0 - 2.0 %) 0.4 0.3 Absolute Granulocytes (1.4 - 6.5 /CUMM) 14.1 H 9.6 H Absolute Lymphocytes (1.2 - 3.4 /CUMM) 1.5 1.8 Absolute Monocytes (0.10 - 0.60 /CUMM) 1.9 H 1.2 H Absolute Eosinophils (0.0 - 0.7 /CUMM) 0 0 Absolute Basophils (0.0 - 0.2 /CUMM) 0.1 0 Assessment/Plan Assessment/Recommendations Assessment: 1. Acute kidney injury. His urinary sodium is consistent with prerenal azotemia. Fractional excretion of sodium is calculated to be 0.08%. Which corroborates that clinical impression. He is not received any IV contrast. He did receive ceftezolin for antibiotic prophylaxis, but that has been discontinued. In addition, unless an anamnestic response is invoked, it is highly unlikely that one dose of Ancef would cause interstitial nephritis. There is likewise no fever nor rash. The only other issue is whether or not he has developed acute urinary retention. To this end, would obtain a renal ultrasound or bladder scan for postvoid residual. With regards to discharge, until his creatinine is clearly decreasing that is not something that ought to be contemplated. In addition, on 2 urinalyses he did have hematuria. I cannot find any documentation that a Hooker catheter had ever been placed with, therefore, the explanation for the hematuria being trauma to the urogenital tract from the Hooker. He says that he is unaware of any previous hematuria. The other issue here whether or not the resumption of his antihypertensives have interfered with renal perfusion 2. Hematuria. May be helpful to obtain old urinalyses. 3. Hypertension. Would not use any lisinopril or angiotensin receptor blockers at this time. 4. Status post right total hip Recommendations: 1. Strict intakes and outputs 2. Daily BMPs 3. Ultrasound of the kidneys and/or bladder scan to exclude the possibility of urinary retention 4. Would also obtain a serum CPK. This can be added on. Could this possibly be rhabdomyolysis? This seems highly unlikely since a CPK of greater than 10, 000 is generally required to cause a change in renal function. 5. Avoid other nephrotoxins. 6. Will follow with you 7. Continue fluids for now
[2018-06-28 14:30] VITALS: BP 129/77
--- NOTE | 2018-06-28 15:01 | ULTRASOUND REPORT ---
EXAMINATION: US RETROPERITONEAL COMPLETE (RENAL) CLINICAL INFORMATION: Hematuria. Creatinine elevation. Presumptive diagnosis of prerenal acute kidney injury. COMPARISON: None TECHNIQUE: Real-time imaging of the kidneys and bladder. FINDINGS: RIGHT KIDNEY: 15.5 x 7.5 x 5.8 cm (SAG x AP x TRV). The kidney is normal in size, contour, and echogenicity. Renal cortical thickness is normal. No calculi. No hydronephrosis. There is an exophytic 5.0 x 5.6 x 4.2 cm thin-walled anechoic avascular cyst in the upper pole of the right kidney and a second 4.9 x 4.9 x 5.0 cm thin-walled anechoic exophytic cyst in the lower pole of the right kidney. LEFT KIDNEY: 15.5 x 7.2 x 7.6 cm (SAG x AP x TRV). The kidney is normal in size, contour, and echogenicity. Renal cortical thickness is normal. No calculi. No hydronephrosis. In the upper pole of the left kidney, a exophytic 2.7 x 3.2 x 2.8 cm anechoic thin-walled avascular simple cyst is seen. In the parapelvic mid left kidney, a large 9.6 x 4.9 x 7.3 cm avascular thin-walled cyst is seen. In the mid left kidney, a thin-walled anechoic avascular simple cyst is seen, measuring 1.9 x 1.4 x 2.5 cm. BLADDER: Cannot be evaluated since the patient voided right before the exam. The bladder is completely decompressed. IMPRESSION: 1. 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 2. No hydronephrosis or definite nephrolithiasis seen. 3. Bladder completely decompressed and therefore not able to be evaluated.
[2018-06-28 22:25] VITALS: BP 152/80
[2018-06-29 07:53] VITALS: BP 158/76
[2018-06-29 08:04] LABS: ABSOLUTE BASOPHIL COUNT 0 /CUMM (0.0-0.2); ABSOLUTE EOSINOPHIL COUNT 0.1 /CUMM (0.0-0.7); ABSOLUTE GRANULOCYTE CT 6.9 /CUMM (1.4-6.5); ABSOLUTE LYMPH COUNT 1.3 /CUMM (1.2-3.4); ABSOLUTE MONOCYTE COUNT 0.8 /CUMM (0.10-0.60); BASOPHIL % 0.5 % (0.0-2.0); EOSINOPHIL % 1.2 % (0-5); HEMATOCRIT 29.9 % (42-52); MEAN CORPUSCULAR HGB 31.4 PG (27.0-31.0); MEAN CORPUSCULAR HGB CONC 34.1 G/DL (33.0-37.0); MEAN CORPUSCULAR VOLUME 91.9 FL (80.0-94.0); MEAN PLATELET VOLUME 8.8 FL (7.4-10.4); PLATELET COUNT 232 /CUMM (130-400); RBC DISTRIBUTION WIDTH 14.2 % (11.5-14.5); RED BLOOD CELL CT 3.26 /CUMM (4.70-6.10); WHITE BLOOD CELL COUNT 9.1 /CUMM (4.8-10.8)
--- NOTE | 2018-06-29 09:17 | PN- Orthopedic ---
Subjective Subjective: Patient sitting in chair states that right hip pain has significantly improved. States that he is taking a lot of fluids and voiding often. Building with physical therapy. Patient states he had one loose bowel movement. Denies nausea or vomiting Denies chest pain or shortness of breath Objective Vital Signs and I&Os Vital Signs Date Time Temp Pulse Resp B/P B/P Pulse O2 O2 Flow FiO2 Mean Ox Delivery Rate 06/29 0753 97.9 80 20 158/76 96 06/28 2225 98.5 80 20 152/80 95 Room Air 06/28 1430 98.3 77 18 129/77 98 Room Air Intake & Output 06/29 1600 06/29 0800 06/29 0000 06/28 1600 06/28 0800 06/28 0000 Intake Total 720 1005 1200 600 Output Total 380 450 400 250 Balance 340 1005 750 200 -250 Intake, IV 600 525 600 600 Intake, Oral 120 480 600 Number 1 Bowel Movements Output, Urine 380 450 400 250 Physical Exam: General- NAD Resperations- clear bialaterlly Cardiac-regular rate and rhythm Abdomen-soft nontender with positive bowel sounds Extremities-dressing is clean and dry, thigh is soft with no erythema, minimal tenderness around incision. Calves are soft bilaterally and non-tenderness. Distal sensory and motor function is intact. 2+ dorsalis pedis pulse bilaterally Current Medications: Current Medications Sig/Charley Start time Last Medication Dose Route Stop Time Status Admin Acetaminophen 975 MG Q8H 06/27 0845 DC 06/28 PO 1623 Amlodipine Besylate 5 MG DAILY 06/26 0900 AC 06/28 PO 0841 Aspirin Buffered 81 MG BID 06/25 2100 AC 06/28 PO 2003 Bisacodyl 10 MG ONCE ONE 06/28 181 DC 06/28 NV 06/28 1816 2004 Docusate Sodium 100 MG BID 06/25 2100 AC 06/28 PO 2004 Hydromorphone HCl 2 MG Q4P PRN 06/25 1230 AC PO Hydromorphone HCl 4 MG Q4P PRN 06/25 1230 AC 06/27 PO 1235 Morphine Sulfate 2 MG Q2P PRN 06/25 1230 AC 06/26 IV 1824 Ondansetron HCl 4 MG Q6P PRN 06/25 1230 AC 06/26 IV 0933 Polyethylene Glycol 17 GM DAILY 06/25 0936 AC 06/28 PO 0843 Senna/Docusate Sodium 2 TAB DAILY 06/27 0900 AC 06/28 PO 0841 Sodium Chloride 1,000 ML Q13H 06/27 1045 AC 06/29 IV 0352 Results Last 48 Hours of Labs: Laboratory Tests 06/29 06/28 0630 0740 Chemistry Sodium (137 - 145 mmol/L) 136 L 133 L Potassium (3.5 - 5.1 mmol/L) 4.3 3.9 Chloride (98 - 107 mmol/L) 105 102 Carbon Dioxide (22 - 30 mmol/L) 21 L 22 Anion Gap (5 - 16) 10 9 BUN (9 - 20 mg/dL) 32 H 39 H Creatinine (0.7 - 1.2 mg/dL) 1.7 H 2.7 H Estimated GFR (>60 ml/min) 39 L 23 L BUN/Creatinine Ratio (7 - 25 %) 18.8 14.4 Total Bilirubin (0.2 - 1.3 mg/dL) 1.5 H 1.6 H Direct Bilirubin (< 0.4 mg/dL) 0.2 0.2 AST (17 - 59 U/L) 25 20 ALT (21 - 72 U/L) 27 28 Alkaline Phosphatase (< 127 U/L) 57 50 Creatine Kinase (55 - 170 U/L) 282 H Total Protein (6.3 - 8.2 g/dL) 4.8 L 4.7 L Albumin (3.5 - 5.0 g/dL) 2.5 L 2.4 L Hematology CBC w Diff NO MAN DIFF REQ NO MAN DIFF REQ WBC (4.8 - 10.8 /CUMM) 9.1 12.9 H RBC (4.70 - 6.10 /CUMM) 3.26 L 3.19 L Hgb (14.0 - 18.0 G/DL) 10.2 L 10.1 L Hct (42 - 52 %) 29.9 L 29.7 L MCV (80.0 - 94.0 FL) 91.9 93.2 MCH (27.0 - 31.0 PG) 31.4 H 31.6 H MCHC (33.0 - 37.0 G/DL) 34.1 33.9 RDW (11.5 - 14.5 %) 14.2 14.0 Plt Count (130 - 400 /CUMM) 232 209 MPV (7.4 - 10.4 FL) 8.8 8.5 Gran % (42.2 - 75.2 %) 75.0 77.6 H Lymphocytes % (20.5 - 51.1 %) 14.0 L 12.4 L Monocytes % (1.7 - 9.3 %) 9.3 8.9 Eosinophils % (0 - 5 %) 1.2 0.9 Basophils % (0.0 - 2.0 %) 0.5 0.2 Absolute Granulocytes (1.4 - 6.5 /CUMM) 6.9 H 10.0 H Absolute Lymphocytes (1.2 - 3.4 /CUMM) 1.3 1.6 Absolute Monocytes (0.10 - 0.60 /CUMM) 0.8 H 1.2 H Absolute Eosinophils (0.0 - 0.7 /CUMM) 0.1 0.1 Absolute Basophils (0.0 - 0.2 /CUMM) 0 0 06/27 06/27 2245 2245 Urines Urine Color (YEL,AMB,STR) YEL Urine Clarity (CLEAR) CLDY H Urine pH (5.0 - 8.0) 5.5 Ur Specific [place] (1.001 - 1.035) >= 1.030 Urine Protein (NEG,<30 MG/DL) 30 H Urine Ketones (NEG) NEG Urine Nitrite (NEG) NEG Urine Bilirubin (NEG) NEG Urine Urobilinogen (0.1 - 1.0 EU/dl) 0.2 Ur Leukocyte Esterase (NEG) TRACE H Ur Microscopic SEDIMENT EXAMINED Urine RBC (0 - 5 /HPF) >75 H Urine WBC (0 - 2 /HPF) 10-15 H Ur Epithelial Cells (NONE,FEW) FEW Urine Crystals 1+ CA OX H Urine Bacteria (NEG/NONE) MOD H Urine Mucus (FEW,NONE) FEW Urine Hemoglobin (NEG) LARGE H Ur Random Creatinine (mg/dL) 352.4 U Random Total Protein (0 - 12 mg/dL) 40 H Ur Random Sodium (30 - 90 mmol/L) 15 L Ur Random Potassium (mmol/L) 51.8 Protein/Creatinin Ratio (< 0.2) 0.1 Fraction Sodium Excret (<1% %) 0.1 Urine Glucose (N MG/DL) NEG 06/27 06/27 1220 1220 Urines Urine Color (YEL,AMB,STR) YEL Urine Clarity (CLEAR) HAZY H Urine pH (5.0 - 8.0) 5.5 Ur Specific [place] (1.001 - 1.035) 1.025 Urine Protein (NEG,<30 MG/DL) 100 H Urine Ketones (NEG) NEG Urine Nitrite (NEG) NEG Urine Bilirubin (NEG) NEG Urine Urobilinogen (0.1 - 1.0 EU/dl) 0.2 Ur Leukocyte Esterase (NEG) NEG Ur Microscopic SEDIMENT EXAMINED Urine RBC (0 - 5 /HPF) PACKD H Urine WBC (0 - 2 /HPF) RARE Ur Epithelial Cells (NONE,FEW) FEW Granular Casts (NONE /LPF) 1-3 H Urine Hemoglobin (NEG) LARGE H Ur Random Creatinine (mg/dL) 170.5 Ur Random Sodium (30 - 90 mmol/L) 26 L Ur Random Potassium (mmol/L) 44.8 Fraction Sodium Excret (<1% %) 0.3 Urine Glucose (N MG/DL) NEG 06/27 0945 Chemistry Sodium (137 - 145 mmol/L) 136 L Potassium (3.5 - 5.1 mmol/L) 4.3 Chloride (98 - 107 mmol/L) 103 Carbon Dioxide (22 - 30 mmol/L) 20 L Anion Gap (5 - 16) 13 BUN (9 - 20 mg/dL) 25 H Creatinine (0.7 - 1.2 mg/dL) 2.7 H Estimated GFR (>60 ml/min) 23 L BUN/Creatinine Ratio (7 - 25 %) 9.3 Hematology CBC w Diff NO MAN DIFF REQ WBC (4.8 - 10.8 /CUMM) 17.5 H RBC (4.70 - 6.10 /CUMM) 3.62 L Hgb (14.0 - 18.0 G/DL) 11.5 L Hct (42 - 52 %) 33.3 L MCV (80.0 - 94.0 FL) 92.1 MCH (27.0 - 31.0 PG) 31.8 H MCHC (33.0 - 37.0 G/DL) 34.5 RDW (11.5 - 14.5 %) 14.3 Plt Count (130 - 400 /CUMM) 240 MPV (7.4 - 10.4 FL) 9.3 Gran % (42.2 - 75.2 %) 80.6 H Lymphocytes % (20.5 - 51.1 %) 8.3 L Monocytes % (1.7 - 9.3 %) 10.7 H Eosinophils % (0 - 5 %) 0 Basophils % (0.0 - 2.0 %) 0.4 Absolute Granulocytes (1.4 - 6.5 /CUMM) 14.1 H Absolute Lymphocytes (1.2 - 3.4 /CUMM) 1.5 Absolute Monocytes (0.10 - 0.60 /CUMM) 1.9 H Absolute Eosinophils (0.0 - 0.7 /CUMM) 0 Absolute Basophils (0.0 - 0.2 /CUMM) 0.1 Assessment/Plan Assessment/Plan This 69-year-old male with history of hypertension hyperlipidemia now here postop day 4 from a right total hip replacement. Postop course complicated by acute kidney injury and possible prerenal ATN, nephrology-Dr. Villanueva, is on board. Appreciate his recommendations Leukocytosis, likely reactive postoperatively, has resolved Creatinine DOWN TODAY from 2.7 to 1.7, will continue IVF for now Continue to hold nephrotoxic medication Out of bed, physical therapy, weightbearing as tolerated Continue dry sterile dressing Aspirin for DVT prophylaxis Pain medication as needed Possible discharge home today w VNA services as patient is orthopedically stable however we will await nephrology input today prior to making any decisions in case he needs further nephrology workup and/or treatment Core Measures Venous Thromboembolism VTE Risk Factors Surgery No Mechanical VTE Prophylaxis d/t N/A MechProphylax Ordered No VTE Pharm Prophylaxis d/t NA PharmProphylax ordered
[2018-06-29 09:54] VITALS: BP 150/72
--- NOTE | 2018-06-29 12:46 | PN- Nephrology ---
Assessment/Plan Nephrology Assessment: IRIS - I suspect ATN related to hemodynamic insults during his surgery based on the time-course of his IRIS. Improving. Stage III CKD - minimally proteinuric - baseline around 1.3 (?) - follows with Dr. Posada. HTN - Given IRIS, would hold off on restarted JOSE-I until renal function returns back to baseline. Given that his BP is a bit elevated now, I think we can increase the amlodipine to 10mg daily. Given that he is minimally proteinuric, there is no dramatic renal indication for RAAS inhibition. Suggestion: -Increase amlodipine to 10mg daily -Hold JOSE-I until renal function returns to normal and if BP still requires it Will see PRN if remains in house (tentative plans for discharge today) Please call [phone] with ?'s Subjective Subjective: Surgery was on 06/25 SCr back down to 1.7 SBp 150's/70's - on amlodipine 5mg daily Should note he got lisinopril on 06/26 and 06/27 Got 30mg IV toradol on 06/27 which is when his SCr was already 2.7 Otherwise eating/drinking OK Objective Vital Signs and I&Os Vital Signs Date Time Temp Pulse Resp B/P B/P Pulse O2 O2 Flow FiO2 Mean Ox Delivery Rate 06/29 0954 80 150/72 06/29 0753 97.9 80 20 158/76 96 06/28 2225 98.5 80 20 152/80 95 Room Air 06/28 1430 98.3 77 18 129/77 98 Room Air Intake & Output 06/29 1600 06/29 0400 06/28 1600 06/28 0400 06/27 1600 06/27 0400 Intake Total 720 1005 1800 1320 480 Output Total 380 850 250 400 250 Balance 340 1005 950 -250 920 230 Intake, IV 841 595 2431 500 Intake, Oral 120 480 600 820 480 Number 1 0 Bowel Movements Output, Urine 380 850 250 400 250 Physical Exam: Gen - NAD HEENT - supple CV - RRR, no m/r/g Chest - clear, no w/r/r Abd - soft, NTND Ext - warm, no edema Neuro - AOX3, grossly nonfocal Current Medications: Current Medications Sig/Charley Start time Last Medication Dose Route Stop Time Status Admin Acetaminophen 975 MG Q8H 06/27 0845 DC 06/28 PO 1623 Amlodipine Besylate 5 MG DAILY 06/26 0900 AC 06/29 PO 0954 Aspirin Buffered 81 MG BID 06/25 2100 AC 06/29 PO 0954 Bisacodyl 10 MG ONCE ONE 06/28 1815 DC 06/28 AL 06/28 Docusate Sodium 100 MG BID 06/25 2100 AC 06/29 PO 0954 Hydromorphone HCl 2 MG Q4P PRN 06/25 1230 AC PO Hydromorphone HCl 4 MG Q4P PRN 06/25 1230 AC 06/27 PO 1235 Morphine Sulfate 2 MG Q2P PRN 06/25 1230 AC 06/26 IV 1824 Ondansetron HCl 4 MG Q6P PRN 06/25 1230 AC 06/26 IV 0933 Polyethylene Glycol 17 GM DAILY 06/25 0936 AC 06/29 PO 0954 Senna/Docusate Sodium 2 TAB DAILY 06/27 0900 AC 06/29 PO 0954 Sodium Chloride 1,000 ML Q13H 06/27 1045 AC 06/29 IV 0352 Results Pertinent Lab Results: Laboratory Tests 06/29 06/28 0630 0740 Chemistry Sodium (137 - 145 mmol/L) 136 L 133 L Potassium (3.5 - 5.1 mmol/L) 4.3 3.9 Chloride (98 - 107 mmol/L) 105 102 Carbon Dioxide (22 - 30 mmol/L) 21 L 22 Anion Gap (5 - 16) 10 9 BUN (9 - 20 mg/dL) 32 H 39 H Creatinine (0.7 - 1.2 mg/dL) 1.7 H 2.7 H Estimated GFR (>60 ml/min) 39 L 23 L BUN/Creatinine Ratio (7 - 25 %) 18.8 14.4 Total Bilirubin (0.2 - 1.3 mg/dL) 1.5 H 1.6 H Direct Bilirubin (< 0.4 mg/dL) 0.2 0.2 AST (17 - 59 U/L) 25 20 ALT (21 - 72 U/L) 27 28 Alkaline Phosphatase (< 127 U/L) 57 50 Creatine Kinase (55 - 170 U/L) 282 H Total Protein (6.3 - 8.2 g/dL) 4.8 L 4.7 L Albumin (3.5 - 5.0 g/dL) 2.5 L 2.4 L Hematology CBC w Diff NO MAN DIFF REQ NO MAN DIFF REQ WBC (4.8 - 10.8 /CUMM) 9.1 12.9 H RBC (4.70 - 6.10 /CUMM) 3.26 L 3.19 L Hgb (14.0 - 18.0 G/DL) 10.2 L 10.1 L Hct (42 - 52 %) 29.9 L 29.7 L MCV (80.0 - 94.0 FL) 91.9 93.2 MCH (27.0 - 31.0 PG) 31.4 H 31.6 H MCHC (33.0 - 37.0 G/DL) 34.1 33.9 RDW (11.5 - 14.5 %) 14.2 14.0 Plt Count (130 - 400 /CUMM) 232 209 MPV (7.4 - 10.4 FL) 8.8 8.5 Gran % (42.2 - 75.2 %) 75.0 77.6 H Lymphocytes % (20.5 - 51.1 %) 14.0 L 12.4 L Monocytes % (1.7 - 9.3 %) 9.3 8.9 Eosinophils % (0 - 5 %) 1.2 0.9 Basophils % (0.0 - 2.0 %) 0.5 0.2 Absolute Granulocytes (1.4 - 6.5 /CUMM) 6.9 H 10.0 H Absolute Lymphocytes (1.2 - 3.4 /CUMM) 1.3 1.6 Absolute Monocytes (0.10 - 0.60 /CUMM) 0.8 H 1.2 H Absolute Eosinophils (0.0 - 0.7 /CUMM) 0.1 0.1 Absolute Basophils (0.0 - 0.2 /CUMM) 0 0 06/27 06/27 2245 2245 Urines Urine Color (YEL,AMB,STR) YEL Urine Clarity (CLEAR) CLDY H Urine pH (5.0 - 8.0) 5.5 Ur Specific [place] (1.001 - 1.035) >= 1.030 Urine Protein (NEG,<30 MG/DL) 30 H Urine Ketones (NEG) NEG Urine Nitrite (NEG) NEG Urine Bilirubin (NEG) NEG Urine Urobilinogen (0.1 - 1.0 EU/dl) 0.2 Ur Leukocyte Esterase (NEG) TRACE H Ur Microscopic SEDIMENT EXAMINED Urine RBC (0 - 5 /HPF) >75 H Urine WBC (0 - 2 /HPF) 10-15 H Ur Epithelial Cells (NONE,FEW) FEW Urine Crystals 1+ CA OX H Urine Bacteria (NEG/NONE) MOD H Urine Mucus (FEW,NONE) FEW Urine Hemoglobin (NEG) LARGE H Ur Random Creatinine (mg/dL) 352.4 U Random Total Protein (0 - 12 mg/dL) 40 H Ur Random Sodium (30 - 90 mmol/L) 15 L Ur Random Potassium (mmol/L) 51.8 Protein/Creatinin Ratio (< 0.2) 0.1 Fraction Sodium Excret (<1% %) 0.1 Urine Glucose (N MG/DL) NEG 06/27 06/27 1220 1220 Urines Urine Color (YEL,AMB,STR) YEL Urine Clarity (CLEAR) HAZY H Urine pH (5.0 - 8.0) 5.5 Ur Specific [place] (1.001 - 1.035) 1.025 Urine Protein (NEG,<30 MG/DL) 100 H Urine Ketones (NEG) NEG Urine Nitrite (NEG) NEG Urine Bilirubin (NEG) NEG Urine Urobilinogen (0.1 - 1.0 EU/dl) 0.2 Ur Leukocyte Esterase (NEG) NEG Ur Microscopic SEDIMENT EXAMINED Urine RBC (0 - 5 /HPF) PACKD H Urine WBC (0 - 2 /HPF) RARE Ur Epithelial Cells (NONE,FEW) FEW Granular Casts (NONE /LPF) 1-3 H Urine Hemoglobin (NEG) LARGE H Ur Random Creatinine (mg/dL) 170.5 Ur Random Sodium (30 - 90 mmol/L) 26 L Ur Random Potassium (mmol/L) 44.8 Fraction Sodium Excret (<1% %) 0.3 Urine Glucose (N MG/DL) NEG 06/27 0945 Chemistry Sodium (137 - 145 mmol/L) 136 L Potassium (3.5 - 5.1 mmol/L) 4.3 Chloride (98 - 107 mmol/L) 103 Carbon Dioxide (22 - 30 mmol/L) 20 L Anion Gap (5 - 16) 13 BUN (9 - 20 mg/dL) 25 H Creatinine (0.7 - 1.2 mg/dL) 2.7 H Estimated GFR (>60 ml/min) 23 L BUN/Creatinine Ratio (7 - 25 %) 9.3 Hematology CBC w Diff NO MAN DIFF REQ WBC (4.8 - 10.8 /CUMM) 17.5 H RBC (4.70 - 6.10 /CUMM) 3.62 L Hgb (14.0 - 18.0 G/DL) 11.5 L Hct (42 - 52 %) 33.3 L MCV (80.0 - 94.0 FL) 92.1 MCH (27.0 - 31.0 PG) 31.8 H MCHC (33.0 - 37.0 G/DL) 34.5 RDW (11.5 - 14.5 %) 14.3 Plt Count (130 - 400 /CUMM) 240 MPV (7.4 - 10.4 FL) 9.3 Gran % (42.2 - 75.2 %) 80.6 H Lymphocytes % (20.5 - 51.1 %) 8.3 L Monocytes % (1.7 - 9.3 %) 10.7 H Eosinophils % (0 - 5 %) 0 Basophils % (0.0 - 2.0 %) 0.4 Absolute Granulocytes (1.4 - 6.5 /CUMM) 14.1 H Absolute Lymphocytes (1.2 - 3.4 /CUMM) 1.5 Absolute Monocytes (0.10 - 0.60 /CUMM) 1.9 H Absolute Eosinophils (0.0 - 0.7 /CUMM) 0 Absolute Basophils (0.0 - 0.2 /CUMM) 0.1 Imaging/Other Studies: EXAM TYPE: US - US-RENAL/KIDNEY EXAMINATION: US RETROPERITONEAL COMPLETE (RENAL) CLINICAL INFORMATION: Hematuria. Creatinine elevation. Presumptive diagnosis of prerenal acute kidney injury. COMPARISON: None TECHNIQUE: Real-time imaging of the kidneys and bladder. FINDINGS: RIGHT KIDNEY: 15.5 x 7.5 x 5.8 cm (SAG x AP x TRV). The kidney is normal in size, contour, and echogenicity. Renal cortical thickness is normal. No calculi. No hydronephrosis. There is an exophytic 5.0 x 5.6 x 4.2 cm thin-walled anechoic avascular cyst in the upper pole of the right kidney and a second 4.9 x 4.9 x 5.0 cm thin-walled anechoic exophytic cyst in the lower pole of the right kidney. LEFT KIDNEY: 15.5 x 7.2 x 7.6 cm (SAG x AP x TRV). The kidney is normal in size, contour, and echogenicity. Renal cortical thickness is normal. No calculi. No hydronephrosis. In the upper pole of the left kidney, a exophytic 2.7 x 3.2 x 2.8 cm anechoic thin-walled avascular simple cyst is seen. In the parapelvic mid left kidney, a large 9.6 x 4.9 x 7.3 cm avascular thin-walled cyst is seen. In the mid left kidney, a thin-walled anechoic avascular simple cyst is seen, measuring 1.9 x 1.4 x 2.5 cm. BLADDER: Cannot be evaluated since the patient voided right before the exam. The bladder is completely decompressed. IMPRESSION: 1. 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 2. No hydronephrosis or definite nephrolithiasis seen. 3. Bladder completely decompressed and therefore not able to be evaluated.
[2018-06-29] MEDS ORDERED: AMLODIPINE BESYL5 M1 PO (14:28)
== END 2018-06-29 16:00 | disposition home health service (06) | DRG 470 ==
LOC: DELPENDDIS → 2NB 01:50 → SDA 01:50 → ENRESERV 11:06 → ENTRNSPT 11:48 → EDTRNSPTSTS 12:09 → EDTRNSPT 12:09 → 2NB 12:20 → CMPTRNSPT 12:30 → ENPENDDIS 06-26 11:23 → ENTRNSPT 06-29 15:47 → EDTRNSPT 06-29 15:51 → EDTRNSPTSTS 06-29 15:51 → 2NB 06-29 16:00 → CMPTRNSPT 06-29 16:22
PROVIDERS: Nurse Practitioner; Orthopaedic Surgery; Physician Assistant Surgical
PROC: 0SR904A Replacement of Right Hip Joint with Ceramic on Polyethylene Synthetic Substitute, Uncemented, Open Approach (ICD-10-PCS; principal; 2018-06-25)
DX: M16.11 Unilateral primary osteoarthritis, right hip (principal); N17.9 Acute kidney failure, unspecified; E78.5 Hyperlipidemia, unspecified; F51.01 Primary insomnia; Z96.653 Presence of artificial knee joint, bilateral; I12.9 Hypertensive chronic kidney disease with stage 1 through stage 4 chronic kidney disease, or unspecified chronic kidney disease; N18.3 Chronic kidney disease, stage 3 (moderate); G47.33 Obstructive sleep apnea (adult) (pediatric); G25.81 Restless legs syndrome; F41.9 Anxiety disorder, unspecified; M48.061 Spinal stenosis, lumbar region without neurogenic claudication
CPT/HCPCS: 2NSBP; 84133; 84300; 36415; 36592; 73502-RT; 76775; 81001; 82436; 82570; 87086; 88304; 97110-GO; 97112-GO; 97116-GO; 97161-GP; 97530-GO; J0131; J0690; J0735; J1885; J2405; J7042